=== PATIENT | male | born 1985 | race Caucasian/White ===

== ENCOUNTER → 2020-08-29 | Outpatient (CLI) | payer BC ==
--- NOTE | 2020-08-31 11:50 | ECHO ---
DATE OF PROCEDURE: 08/29/2020 Age: 34 Gender: Male Height: 68 inches Weight: 150 pounds Body Surface Area: 1.8 m2 PATIENT LOCATION: Outpatient. REFERRING PHYSICIAN: Kathleen Berry DO. INDICATION: Family history of bicuspid aortic valve. MEASUREMENTS: 2D Measurements: RV 3.7 cm. LV 4.6 cm Septum 0.8 cm Posterior wall 0.8 cm Aortic Root 2.6 cm LA 2.8 cm LVEF 75% Doppler Measurements: AV 1.48 m/s LVOT 1.19 m/s LVOT diameter 2.0 cm MV-E 102, A 53, EA ratio 1.9 Early mitral deceleration time 150 msec E prime medial 15.6, A prime medial 9, E prime lateral 18 PV - 0.95 m/s Pulmonary artery acceleration time 140 msec RVSP 20 mmHg IVC 1.7 cm COMMENTS: Normal sinus rhythm without intraventricular conduction disturbance. M-mode and 2-dimensional echocardiography was performed with pulse, continuous wave, color flow, and tissue Doppler studies. Normal left ventricular size, wall thickness, and wall motion. Normal left atrial size and Doppler assessment of LV diastolic function and estimated mean left atrial pressure. Normal right heart chamber sizes and function with normal estimated pulmonary arterial pressure. Normal IVC size and collapse against an elevated central venous pressure. Normal aortic measurements. Normal appearing and functioning aortic valve. Normal appearing and functioning mitral valve. Normal appearing and functioning tricuspid valve with only trace insufficiency (physiologic). No apparent intracardiac mass or pericardial effusion. MTDD
== END ==
LOC: M CARPUL 08:18
PROVIDERS: ATTEND Family Medicine
DX: Z82.79 Family history of other congenital malformations, deformations and chromosomal abnormalities (principal)

== ENCOUNTER → 2021-11-21 | Outpatient (CLI) | payer BC | LOC: M RAD 08:46 | PROVIDERS: ATTEND Nurse Practitioner Adult Health | DX: J32.9 Chronic sinusitis, unspecified (principal) ==

== ENCOUNTER → 2022-10-09 | Outpatient (CLI) | payer BC | LOC: M WUC 15:35 | PROVIDERS: ATTEND Physician Assistant | DX: S92.515A Nondisplaced fracture of proximal phalanx of left lesser toe(s), initial encounter for closed fracture (principal); W18.30XA Fall on same level, unspecified, initial encounter; Y92.009 Unspecified place in unspecified non-institutional (private) residence as the place of occurrence of the external cause ==

== ENCOUNTER 2023-08-16 23:23 | Emergency (ER) | payer BC ==
[~2023-08-16] VITALS: Ht 175.3 cm; Wt 65.9 kg
[2023-08-17] MEDS ORDERED: ONDANSETRON 4MG 2ML VIAL As Ordered ONE (00:09)
[2023-08-17] MEDS ORDERED: ONDANSETRON 4MG 2ML VIAL IV ONE ×2 (00:10→02:05)
[2023-08-17] MEDS ORDERED: ISOVUE-370 76% 100ML VIAL As Ordered ONE (00:14)
[2023-08-17 00:29] LABS: BASO % 0.3 % (0.0-1.0); EOS % 0.2 % (0.0-3.0); HEMATOCRIT 40.7 % (42.0-52.0); HEMOGLOBIN 13.9 g/dl (13.5-17.5); LYMPH # 2.8 10^3/uL (1.5-5.0); LYMPH % 23.7 % (24.0-44.0); MEAN CORPUSCULAR HEMOGLOBIN 31.5 pg (27.0-33.0); MEAN CORPUSCULAR HGB CONC 34.2 g/dl (32.0-36.5); MEAN CORPUSCULAR VOLUME 92.3 fl (80.0-96.0); MONO # 0.7 10^3/uL (0.0-0.8); MONO % 6.2 % (2.0-8.0); NEUTROPHILS # 8.1 10^3/uL (1.5-8.5); NEUTROPHILS % 68.7 % (36.0-66.0); PLATELET COUNT, AUTOMATED 283 10^3/uL (150-450); RED BLOOD COUNT 4.41 10^6/uL (4.30-6.10); WHITE BLOOD COUNT 11.8 10^3/uL (4.0-10.0)
[2023-08-17 01:15] LABS: LIPASE 62 U/L (12-53)
[2023-08-17 01:18] LABS: ALBUMIN 3.8 G/DL (3.2-5.2); ALKALINE PHOSPHATASE 79 U/L (46-116); ALT/SGPT 22 U/L (7.0-40); AST/SGOT 19 U/L (<34); BILIRUBIN,TOTAL 0.4 MG/DL (0.3-1.2); BLOOD UREA NITROGEN 7 MG/DL (9-23); CALCIUM LEVEL 8.4 MG/DL (8.5-10.1); CARBON DIOXIDE LEVEL 28 MMOL/L (20-31); CHLORIDE LEVEL 104 MMOL/L (98-107); CREATININE FOR GFR 0.77 MG/DL (0.70-1.30); GLOMERULAR FILTRATION RATE > 60.0 (>60); GLUCOSE, FASTING 100 MG/DL (60-100); POTASSIUM SERUM 3.9 MMOL/L (3.5-5.1); SODIUM LEVEL 134 MMOL/L (136-145); TOTAL PROTEIN 6.6 G/DL (5.7-8.2)
[2023-08-17 01:53] LABS: RSV AMPLIFICATION NEGATIVE (NEGATIVE)
[2023-08-17] MEDS ORDERED: MORPHINE 2 MG/ML 1ML VIAL IV ONE (02:05)
[2023-08-17 02:11] VITALS: BP 119/87; TEMP 97.9; O2SAT 100
== END 2023-08-17 02:13 | disposition short-term general hospital (02) ==
LOC: M ED 23:23
DX: S36.039A Unspecified laceration of spleen, initial encounter (principal); S37.042A Minor laceration of left kidney, initial encounter; S22.42XA Multiple fractures of ribs, left side, initial encounter for closed fracture; W19.XXXA Unspecified fall, initial encounter; F90.9 Attention-deficit hyperactivity disorder, unspecified type; F10.10 Alcohol abuse, uncomplicated; Y92.009 Unspecified place in unspecified non-institutional (private) residence as the place of occurrence of the external cause; Y93.89 Activity, other specified; Y99.9 Unspecified external cause status
CPT/HCPCS: 71260; 74177; 80047; 80053; 83690; 85025; 86850; 86900; 86901; 87631; 93041; 94760; 96374; 96375; 99285; J2405; Q9967

== ENCOUNTER 2023-08-22 19:03 | Emergency (ER) | payer BC ==
[~2023-08-22] VITALS: Ht 172.7 cm; Wt 66.1 kg
[2023-08-22] MEDS ORDERED: NS 1,000 ML IV ONE (20:00)
[2023-08-22] MEDS ORDERED: ISOVUE-370 76% 100ML VIAL As Ordered ONE (20:28)
[2023-08-22 20:33] LABS: BASO % 0.3 % (0.0-1.0); EOS # 0.1 10^3/uL (0.0-0.5); EOS % 0.6 % (0.0-3.0); HEMATOCRIT 29.2 % (42.0-52.0); LYMPH # 1.4 10^3/uL (1.5-5.0); LYMPH % 16.2 % (24.0-44.0); MEAN CORPUSCULAR HEMOGLOBIN 31.8 pg (27.0-33.0); MEAN CORPUSCULAR HGB CONC 34.2 g/dl (32.0-36.5); MONO % 12.1 % (2.0-8.0); NEUTROPHILS # 6.1 10^3/uL (1.5-8.5); NEUTROPHILS % 70.5 % (36.0-66.0); PLATELET COUNT, AUTOMATED 259 10^3/uL (150-450); RED BLOOD COUNT 3.14 10^6/uL (4.30-6.10); WHITE BLOOD COUNT 8.6 10^3/uL (4.0-10.0)
[2023-08-22 20:56] LABS: ALBUMIN 3.5 G/DL (3.2-5.2); BILIRUBIN,DIRECT 0.2 MG/DL (<0.4); BILIRUBIN,TOTAL 0.8 MG/DL (0.3-1.2); TOTAL PROTEIN 6.5 G/DL (5.7-8.2)
[2023-08-22 22:12] VITALS: BP 140/71; TEMP 97.3; O2SAT 97
== END 2023-08-22 22:30 | disposition home or self-care (01) ==
LOC: M ED 19:03
DX: R10.9 Unspecified abdominal pain (principal); F90.9 Attention-deficit hyperactivity disorder, unspecified type; F10.10 Alcohol abuse, uncomplicated
CPT/HCPCS: 36415; 74177; 80047; 80076; 81001; 83605; 83690; 85025; 93041; 99284; Q9967